=== PATIENT | male | born 2000 | race Two or more races ===

== ENCOUNTER 2025-05-04 22:29 | Emergency (ER) | payer MEDICAID ==
[~2025-05-04] VITALS: Ht 180.3 cm; Wt 68.6 kg
[2025-05-04 22:45] VITALS: BP 107/71; PULSE 70; RESP 18; TEMP 98.6; O2SAT 100
[2025-05-04 23:21] LABS: PLATELET COUNT (AUTO) 215 K/uL (150-450); RED BLOOD CELL COUNT(AUTO) 4.63 MIL/uL (4.50-5.90); RED CELL DISTRIBUTION WIDTH 13.4 % (11.5-14.5); WHITE BLOOD COUNT (AUTO) 5.5 K/uL (4.5-11.0)
[2025-05-04 23:23] LABS: CALCIUM, TOTAL 9.0 mg/dL (8.8-10.5); CREATININE 1.13 mg/dL (0.60-1.30); GLOMERULAR FILTR. RATE CALC > 60 mL/min (>60); GLUCOSE,RANDOM 106 mg/dL (70-110); SODIUM SERUM 140 mmol/L (136-145); UREA NITROGEN, BLOOD 13 mg/dL (7-18)
[2025-05-04 23:35] LABS: TROPONIN I-HIGH SENSITIVITY 36 ng/L (<76)
== END 2025-05-05 01:06 | disposition home or self-care (01) ==
LOC: EMS 23:10
DX: R07.89 Other chest pain (principal); R00.2 Palpitations; F12.90 Cannabis use, unspecified, uncomplicated
CPT/HCPCS: 80048; 84484; 85025; 93005; 99284